=== PATIENT | female | born 1980 ===

== ENCOUNTER 2020-05-16 11:38 | Outpatient (CLI) | payer OTHER ==
--- NOTE | 2020-05-17 09:49 | Mammography Report ---
BILATERAL DIGITAL SCREENING MAMMOGRAM WITH CAD HISTORY: Screening mammogram. TECHNIQUE: Routine digital mammographic imaging performed. This examination was interpreted with payton quan benefit of Computer-aided Detection analysis. COMPARISON: None available. FINDINGS: Breast Density: heterogeneously dense breast parenchymal pattern which somewhat lessens the sensitivi ty of the evaluation. Digital CC and MLO views demonstrate no mammographic evidence of malignancy. IMPRESSION: No mammographic evidence of malignancy. If the clinical examination remains stable, recommend bilate ral mammogram in approximately one year. BIRADS 1: Negative. FURTHER INFORMATION: According to the [employer], yearly mammograms are recommend ed starting at age 40 and continuing as long as a woman is in good health. Clinical Breast Exams shou ld be part of a periodic health exam-about every 3 years for women in their 20s and 30s and every yea r for women 40 and over. Breast self exam is an option for women starting in their 20s. Any breast ch ermias noted on a breast self exam should be reported promptly to the patient's healthcare provider. Br east MRI is recommended for women with an approximately 20-25% or greater lifetime risk of breast can cer, including women with a strong family history of breast or ovarian cancer and women who have been treated for Hodgkin's disease. A negative Mammography report should not discourage follow up or biopsy of a clinically significant f inding and/or abnormality. Dense breast tissue may obscure small neoplasms. The patient will be entered into a reminder system with a target due date for the next screening mamm ogram. Signer Name: Horacio Reece MD Signed: 05/17/2020 9:44 AM Workstation Name: [id number]
== END 2020-05-16 11:39 | disposition home or self-care (01) ==
LOC: SPVWC 11:38
PROVIDERS: ATTEND Family Medicine
DX: Z12.31 Encounter for screening mammogram for malignant neoplasm of breast (principal)
CPT/HCPCS: 77067

== ENCOUNTER 2021-10-15 12:30 | Emergency (ER) | payer OTHER ==
--- NOTE | 2021-10-15 13:54 | Emergency Department Report ---
ED Female HPI - General Chief complaint: Vaginal Bleeding Stated complaint: VAG BLEEDING Time Seen by Provider: 10/15/21 13:49 Source: patient Mode of arrival: Ambulatory Limitations: No Limitations - History of Present Illness Initial comments: 40 YO COMES TO ER CO VAG BLEED IN DC SPOTTING FOR SEVERAL DAYS SAW HER OB LAST WEEK AND EVERYTHING WAS FINE [id number] AMBULATORY AND NON ILL APPEARING NO ABD PAIN NO DYSURIA NO VAG D/C MD Complaint: vaginal bleeding -: Gradual, days(s) Consistency: intermittent Worsens with: none Are you Now?: Yes Associated Symptoms: denies other symptoms, vaginal bleeding. denies: vaginal discharge, abdominal pain, nausea/vomiting, fever/chills, headaches, loss of appetite, dysuria, hematuria, rash, seizure, shortness of breath, syncope, weakness - Related Data Sexually active: Yes : 5 Para: 3 A: 1 ED Review of Systems ROS: Stated complaint: VAG BLEEDING Other details as noted in HPI Comment: All other systems reviewed and negative ED Past Medical Hx - Past Medical History Previous Medical History?: No - Surgical History Past Surgical History?: No - Family History Family history: no significant - Social History Smoking Status: Never Smoker Substance Use Type: None ED Physical Exam - General Limitations: No Limitations General appearance: alert, in no apparent distress - Head Head exam: Present: atraumatic, normocephalic - Eye Eye exam: Present: normal appearance - ENT ENT exam: Present: mucous membranes moist - Neck Neck exam: Present: normal inspection - Respiratory Respiratory exam: Present: normal lung sounds bilaterally. Absent: respiratory distress - Cardiovascular Cardiovascular Exam: Present: regular rate, normal rhythm. Absent: systolic murmur, diastolic murmur, rubs, gallop - GI/Abdominal GI/Abdominal exam: Present: soft, normal bowel sounds - Extremities Exam Extremities exam: Present: normal inspection - Back Exam Back exam: Present: normal inspection - Neurological Exam Neurological exam: Present: alert, oriented X3 - Psychiatric Psychiatric exam: Present: normal affect, normal mood - Skin Skin exam: Present: warm, dry, intact, normal color. Absent: rash ED Course Vital Signs 10/15/21 10/15/21 13:38 16:45 Temperature 97.7 F Pulse Rate 94 H 74 Respiratory 18 16 Rate Blood Pressure 122/60 Blood Pressure 129/78 [Right] O2 Sat by Pulse 99 99 Oximetry ED Medical Decision Making - Lab Data Result diagrams: 10/15/21 15:53 10/15/21 15:53 - Radiology Data Radiology results: report reviewed, image reviewed Lab Results 10/15/21 Range/Units 15:53 [place] % (Auto) 8.0 H (0.0-7.3) % Eos % (Auto) 1.4 (0.0-4.3) % [place] # (Auto) 0.7 (0.0-0.8) K/mm3 Eos # (Auto) 0.1 (0.0-0.4) K/mm3 Baso # (Auto) 0.1 (0.0-0.1) K/mm3 Seg Neutrophils % 65.0 (40.0-70.0) % Seg Neutrophils # 5.8 (1.8-7.7) K/mm3 Vital Signs 10/15/21 13:38 Temperature 97.7 F Pulse Rate 94 H Respiratory 18 Rate Blood Pressure 122/60 O2 Sat by Pulse 99 Oximetry - Medical Decision Making Labs 10/15/21 15:53 WBC 8.9 RBC 4.99 Hgb 14.0 Hct 42.9 MCV 86 MCH 28 MCHC 33 RDW 13.8 Plt Count 154 Lymph % (Auto) 24.9 [place] % (Auto) 8.0 H Eos % (Auto) 1.4 Baso % (Auto) 0.7 Lymph # (Auto) 2.2 [place] # (Auto) 0.7 Eos # (Auto) 0.1 Baso # (Auto) 0.1 Seg Neutrophils % 65.0 Seg Neutrophils # 5.8 Vital Signs 10/15/21 13:38 Temperature 97.7 F Pulse Rate 94 H Respiratory 18 Rate Blood Pressure 122/60 O2 Sat by Pulse 99 Oximetry Lab Results 10/15/21 10/15/21 10/15/21 Range/Units 15:53 15:53 15:53 WBC 8.9 (4.5-11.0) K/mm3 RBC 4.99 (3.65-5.03) M/mm3 Hgb 14.0 (10.1-14.3) gm/dl Hct 42.9 (30.3-42.9) % MCV 86 (79-97) fl MCH 28 (28-32) pg MCHC 33 (30-34) % RDW 13.8 (13.2-15.2) % Plt Count 154 (140-440) K/mm3 Lymph % (Auto) 24.9 (13.4-35.0) % [place] % (Auto) 8.0 H (0.0-7.3) % Eos % (Auto) 1.4 (0.0-4.3) % Baso % (Auto) 0.7 (0.0-1.8) % Lymph # (Auto) 2.2 (1.2-5.4) K/mm3 [place] # (Auto) 0.7 (0.0-0.8) K/mm3 Eos # (Auto) 0.1 (0.0-0.4) K/mm3 Baso # (Auto) 0.1 (0.0-0.1) K/mm3 Seg Neutrophils % 65.0 (40.0-70.0) % Seg Neutrophils # 5.8 (1.8-7.7) K/mm3 Sodium 141 (137-145) mmol/L Potassium 4.2 (3.6-5.0) mmol/L Chloride 104.6 (98-107) mmol/L Carbon Dioxide 23 (22-30) mmol/L Anion Gap 18 mmol/L BUN 7 (7-17) mg/dL Creatinine 0.4 L (0.6-1.2) mg/dL Estimated GFR > 60 ml/min BUN/Creatinine Ratio 18 % Glucose 86 (65-100) mg/dL Calcium 8.9 (8.4-10.2) mg/dL HCG, Quant 7344 H (0-4) mIU/mL Blood Type Ord Rhogam Gestat Weeks WEEKS 10/15/21 Range/Units 15:53 WBC (4.5-11.0) K/mm3 RBC (3.65-5.03) M/mm3 Hgb (10.1-14.3) gm/dl Hct (30.3-42.9) % MCV (79-97) fl MCH (28-32) pg MCHC (30-34) % RDW (13.2-15.2) % Plt Count (140-440) K/mm3 Lymph % (Auto) (13.4-35.0) % [place] % (Auto) (0.0-7.3) % Eos % (Auto) (0.0-4.3) % Baso % (Auto) (0.0-1.8) % Lymph # (Auto) (1.2-5.4) K/mm3 [place] # (Auto) (0.0-0.8) K/mm3 Eos # (Auto) (0.0-0.4) K/mm3 Baso # (Auto) (0.0-0.1) K/mm3 Seg Neutrophils % (40.0-70.0) % Seg Neutrophils # (1.8-7.7) K/mm3 Sodium (137-145) mmol/L Potassium (3.6-5.0) mmol/L Chloride (98-107) mmol/L Carbon Dioxide (22-30) mmol/L Anion Gap mmol/L BUN (7-17) mg/dL Creatinine (0.6-1.2) mg/dL Estimated GFR ml/min BUN/Creatinine Ratio % Glucose (65-100) mg/dL Calcium (8.4-10.2) mg/dL HCG, Quant (0-4) mIU/mL Blood Type O POSITIVE Ord Rhogam Gestat Weeks Rh pos WEEKS labs noted o pos us noted hcg noted dc home with dc instructions. Pt understands she needs to see obgyn in 48 hours for re-eval of her HGB and US. On dc ambulatory/ VSS/ taking PO and NAD - Differential Diagnosis RO ECTOPIC/AB Critical care attestation.: If time is entered above; I have spent that time in minutes in the direct care of this critically ill patient, excluding procedure time. ED Disposition Clinical Impression: Vaginal bleeding affecting early Qualifiers: Weeks of gestation: less than 8 weeks Qualified Code(s): Z3A.01 - Less than 8 weeks gestation of Disposition: 01 HOME / SELF CARE / HOMELESS Is pt being admited?: No Does the pt Need Aspirin: No Condition: Stable Additional Instructions: pelvic rest tylenol for pain FOLLOW UP WITH OBGYN IN 24-48 HOURS FOR REPEAT IMAGING AND ULTRASOUND THEY CAN CALL HERE FOR YOUR RESULTS Referrals: ELOISE JENNINGS MD [Staff Physician] - 3-5 Days Time of Disposition: 16:17 Print Language: MOHAWK
[2021-10-15 16:11] LABS: Basophils # (Auto) 0.1 K/mm3 (0.0-0.1); Basophils % (Auto) 0.7 % (0.0-1.8); Eosinophils # (Auto) 0.1 K/mm3 (0.0-0.4); Eosinophils % (Auto) 1.4 % (0.0-4.3); Hematocrit 42.9 % (30.3-42.9); Lymphocytes # (Auto) 2.2 K/mm3 (1.2-5.4); Lymphocytes % (Auto) 24.9 % (13.4-35.0); Mean Corpuscular HGB Conc 33 % (30-34); Mean Corpuscular Volume 86 fl (79-97); Monocytes # (Auto) 0.7 K/mm3 (0.0-0.8); Platelet Count 154 K/mm3 (140-440); Red Blood Count 4.99 M/mm3 (3.65-5.03); Red Cell Distribution Width 13.8 % (13.2-15.2)
[2021-10-15 16:32] LABS: Blood Urea Nitrogen 7 mg/dL (7-17); Calcium 8.9 mg/dL (8.4-10.2); Hemolysis Index 6
[2021-10-15 16:41] LABS: BUN/Creatinine Ratio 18
[2021-10-15 16:46] VITALS: BP 129/78
--- NOTE | 2021-10-15 23:53 | Ultrasound Report ---
ULTRASOUND OBSTETRIC INDICATION: with vaginal bleeding. TECHNIQUE: Transvaginal. COMPARISON: None available. FINDINGS: GESTATIONAL SAC: A possible intrauterine gestational sac diameter is 2.44 cm, consistent with an age of 7 weeks 3 days. YOLK SAC: A questionable yolk sac is seen. EMBRYO/FETUS: Not seen. ADNEXA: No significant abnormality. FREE FLUID: None. ADDITIONAL FINDINGS: A possible uterine fibroid measures up to 9.5 mm. IMPRESSION: Possible early intrauterine with an estimated age of 7 weeks, 3 days. Given the size of the sac, I would expect to see a pole at this point. I cannot exclude a failed . Close cl inical and imaging follow up is recommended. Signer Name: Moe Cosme MD Signed: 10/15/2021 3:46 PM Workstation Name: [id number]
== END 2021-10-15 16:47 | disposition home or self-care (01) ==
LOC: ED 12:30
DX: O46.91 Antepartum hemorrhage, unspecified, first trimester (principal); Z3A.01 Less than 8 weeks gestation of pregnancy
CPT/HCPCS: 36415; 76801; 76830; 80048; 84702; 85025; 86900; 86901; 99284